=== PATIENT | female | born 1995 ===

== ENCOUNTER 2025-01-09 06:11 | Emergency (ER) | payer SELFPAY ==
[~2025-01-09] VITALS: Ht 154.9 cm; Wt 74.8 kg
[2025-01-09] MEDS ORDERED: ZOLP5 PO (09:24)
[2025-01-09] MEDS ORDERED: MELATONIN5 M1 PO (09:24)
[2025-01-09 09:53] VITALS: BP 145/96
== END 2025-01-09 09:53 | disposition home or self-care (01) ==
LOC: ER 06:11
DX: G47.00 Insomnia, unspecified (principal)
CPT/HCPCS: 99282